=== PATIENT | male | born 1980 | race Two or more races ===

== ENCOUNTER 2021-08-29 21:12 | Emergency (ER) | payer SELFPAY ==
[~2021-08-29] VITALS: Ht 167.6 cm; Wt 84.0 kg
[2021-08-29 21:53] VITALS: BP 150/86
[2021-08-29] MEDS ORDERED: ACET325T9 PO (22:12)
[2021-08-29] MEDS ORDERED: IBUP-1007 PO (22:12)
[2021-08-29] MEDS ORDERED: LIDO700A21 TP (22:12)
[2021-08-29] MEDS ORDERED: METH-562 PO (22:12)
[2021-08-29] MEDS ORDERED: METHOCARBAMOL 750 MG TABLET PO ONE (22:30)
[2021-08-29] MEDS ORDERED: ACETAMINOPHEN 325 MG TABLET. PO ONE (22:30)
[2021-08-29] MEDS ORDERED: LIDOCAINE (700MG/PATCH) PATCH. TD ONE (22:30)
[2021-08-29] MEDS ORDERED: KETOROLAC 30 MG/ML VIAL. IM ONE (22:30)
--- NOTE | 2021-08-29 23:17 | PHYS DOC ---
Past Medical History Past Surgical History: No Surgical History Smoking Status: Never Smoker Alcohol Use: None General Adult EDM: Chief Complaint: CHAYALER HPI: HPI: 41 yo M, lao speaking, no sig pmhx/pshx/allergies, pw L ac joint pain, nontraumatic x 2-3 weeks, states he has already had previous xray that did not show any acute pathology. Patient states he tried physicial therapy and chiropractor but still having discomfort and pain especially at night. Notes that he has a small bump there which is new. Review of Systems: Review of Systems: Constitutional: Denies fever or chills. [] Eyes: Denies change in visual acuity. [] HENT: Denies nasal congestion or sore throat. [] Respiratory: Denies cough or shortness of breath. [] Cardiovascular: Denies chest pain or edema. [] GI: Denies abdominal pain, nausea, vomiting, bloody stools or diarrhea. [] : Denies dysuria. [] Musculoskeletal: Denies back pain or joint pain. [] + Left AC joint pain Integument: Denies rash. [] Neurologic: Denies headache, focal weakness or sensory changes. [] Endocrine: Denies polyuria or polydipsia. [] Lymphatic: Denies swollen glands. [] Psychiatric: Denies depression or anxiety. [] Heart Score: C/O Chest Pain: No Risk Factors: Risk Factors: DM, Current or recent (<one month) smoker, HTN, HLP, family history of CAD, obesity. Risk Scores: Score 0 - 3: 2.5% MACE over next 6 weeks - Discharge Home Score 4 - 6: 20.3% MACE over next 6 weeks - Admit for Clinical Observation Score 7 - 10: 72.7% MACE over next 6 weeks - Early Invasive Strategies Current Medications: Current Medications Medications (Trade) Dose Ordered Sig/Silviano Start Time Stop Time Status Last Admin Dose Admin Acetaminophen (Tylenol) 650 mg 1X ONCE 08/29/21 22:30 08/29/21 22:31 DC 08/29/21 22:30 650 MG Ketorolac Tromethamine (Toradol 30mg Vial) 30 mg 1X ONCE 08/29/21 22:30 08/29/21 22:31 DC 08/29/21 22:29 30 MG Lidocaine (Lidoderm) 1 patch 1X ONCE 08/29/21 22:30 08/29/21 22:31 DC 08/29/21 22:30 1 PATCH Methocarbamol (Robaxin) 750 mg 1X ONCE 08/29/21 22:30 08/29/21 22:31 DC 08/29/21 22:30 750 MG Allergies: Allergies: Allergies Coded Allergies Type Severity Reaction Last Updated Verified No Known Drug Allergies 08/29/21 No Physical Exam: PE: Constitutional: Well developed, well nourished, no acute distress, non-toxic appearance. [] HENT: Normocephalic, atraumatic, bilateral external ears normal, oropharynx moist, no oral exudates, nose normal. [] Eyes: PERRLA, EOMI, conjunctiva normal, no discharge. [] Neck: Normal range of motion, no tenderness, supple, no stridor. [] Cardiovascular: +small bump/deformity of L ac joint and mild ttp, no erythema/edema/ecchyomsis, full ROM of shoulder intact, Heart rate regular rhythm, no murmur [] Lungs & Thorax: Bilateral breath sounds clear to auscultation [] Abdomen: Bowel sounds normal, soft, no tenderness, no masses, no pulsatile masses. [] Skin: Warm, dry, no erythema, no rash. [] Back: No tenderness, no CVA tenderness. [] Extremities: No tenderness, no cyanosis, no clubbing, ROM intact, no edema. [] Neurologic: Alert and oriented X 3, normal motor function, normal sensory function, no focal deficits noted. [] Psychologic: Affect normal, judgement normal, mood normal. [] Current Patient Data: Vital Signs: Vital Signs Date Time Temp Pulse Resp B/P (MAP) Pulse Ox O2 Delivery O2 Flow Rate FiO2 08/29/21 21:53 98.2 79 18 150/86 (107) 100 Room Air 98.2 EKG: EKG: [] Radiology/Procedures: Radiology/Procedures: [] Course & Med Decision Making: Course & Med Decision Making Pertinent Labs and Imaging studies reviewed. (See chart for details) Additional Social History: PMD from non-affiliated facility. Patient Lives at home. Family History: Non-pertinent to today's complaint. Nursing Notes Reviewed Previous Medical Records requested via [facility] Web: Reviewed by me. EMERGENCY DEPARTMENT COURSE/ MEDICAL DECISION MAKING: I examined the patient, evaluated and addressed patient's chief complaint. The patient was treated with toradol, tylenol, robaxin, lidocaine patch Suspect small AC joint injury/separation that is almost 2-3 weeks old and already had xrays that did not show any acute pathology per patient. Gave L arm sling for comfort. Recommend outpatient orthopedic surgery f/u. Stable for dc home. On re-assessment, patient feels much better. The patient understands that todays Emergency Department evaluation does not represent a comprehensive medical workup, and it is impossible to diagnose all possible illnesses from a single Emergency Department visit. The patient verbalized understanding that it is absolutely necessary to have follow-up with regular primary care physician within 1-2 days for more detailed workup and continued exam. I explained the findings and plan to the patient, who expressed verbal understanding and agreed with plan for discharge and follow up. The patient was given after care instructions and welcomed to return to the ED for re-evaluation in 8-12 hours, especially for any new or worsening symptoms. Patient's blood pressure was elevated (>120/80) but appears stable without evidence of end organ damage, malignant hypertension, hypertensive emergency or urgency. The patient was counseled about the risks of hypertension and urged to pursue outpatient monitoring and therapy within a week with their primary care physician. The patient was stable at the time of discharge. DIAGNOSTIC IMPRESSION: 1. Left ac joint injury DISPOSITION: Disposition: Discharge Home. Condition: Improved Follow-Up: PMD Prescriptions: tylenol, ibuprofen, robaxin, lidocaine patch Return to the Emergency Department for new or worsening symptoms. Dragon Disclaimer: Be Disclaimer: This electronic medical record was generated, in whole or in part, using a voice recognition dictation system. Departure Departure Impression: Primary Impression: AC joint pain Disposition: HOME / SELF CARE / HOMELESS Condition: STABLE Referrals: JEANNA GORMAN MD Patient Instructions: Acromioclavicular Separation, Surgery for, with Rehab- [facility], Acromioclavicular Injuries Additional Instructions: Creo que tienes aureliano lesin acromioclavicular. Por favor, tim un seguimiento con un cirujano ortopdico. Scripts Methocarbamol (METHOCARBAMOL) 750 Mg Tablet 750 MG PO DAILY, #14 TAB Prov: ALLI ASHRAF MD 08/29/21 Lidocaine (Lidocaine PATCH ) 1 Each Adh..patch 1 EACH TP DAILY for FOR LOCAL PAIN, #30 PATCH REMOVE AFTER 12 HOURS Prov: ALLI ASHRAF MD 08/29/21 Ibuprofen (IBUPROFEN) 600 Mg Tablet 600 MG PO PRN Q6HRS PRN for INFLAMMATION, #20 TAB Prov: ALLI ASHRAF MD 08/29/21 Acetaminophen (TYLENOL) 325 Mg Tablet 1-2 TAB PO QID, #60 TAB 1 Refill Prov: ALLI ASHRAF MD 08/29/21 ALLI ASHRAF MD August 29, 2021 23:17
== END 2021-08-29 22:32 | disposition home or self-care (01) ==
LOC: ER 21:12
DX: M25.512 Pain in left shoulder (principal)
CPT/HCPCS: 96372; 99284; J1885